=== PATIENT | female | born 1980 | race Two or more races ===

== ENCOUNTER → 2020-10-13 | Outpatient (CLI) | payer OTHER ==
[~2020-10-13] MED LIST: GADOTERATE 7.5 MMOL/15ML VIAL. IVP ONE
--- NOTE | 2020-10-13 14:00 | RAD ---
EXAMINATION: Magnetic resonance imaging (MRI) of the brain and brainstem without and with contrast 10/13/2020 9:41 AM HISTORY: Elevated prolactin. TECHNIQUE: Multiplanar multi-weighted MRI of the brain and brainstem was performed without and with i ntravenous contrast using the general brain protocol. Contrast information: 15 mL Gadolinium based contrast COMPARISON: None available. FINDINGS: The scalp and calvarium are normal. The superior sagittal sinus demonstrates normal venous flow. The corpus callosum is normal in shape and signal intensity. The posterior fossa is unremarkable. There is a hypoenhancing mass within the left sella measuring 8 x 7 x 9 mm (AP by transverse by craniocaud al). There is no involvement of the cavernous sinuses. No significant suprasellar extension. No erosi on of the clivus or extension to the sphenoid sinus. The infundibulum is deviated to the right. The b rainstem and craniocervical junction are unremarkable. Diffusion weighted images reveal no hyperintensities to suggest acute cerebral infarction. The suscep tibility weighted sequences reveal no evidence of acute or chronic hemorrhage. The ventricles are nor mal in size and position without evidence of hydrocephalus. There are no areas of abnormal contrast enhancement. The paranasal sinuses are normal. The visualized portions of the mastoids are unremarkable. The orbi ts appear normal. Normal flow voids are demonstrated in the carotid arteries and basilar artery. IMPRESSION: Left sellar based hypoenhancing mass measures 8 x 7 x 9 mm suspicious for pituitary microadenoma. The re is deviation of the infundibulum to the right. No cavernous sinus involvement or suprasellar exten tru. Electronically signed by: Ericka Rivera MD (10/13/2020 1:57 PM) [id number]
== END ==
LOC: MRI 09:13
PROVIDERS: ATTEND Nurse Practitioner Family
DX: R79.89 Other specified abnormal findings of blood chemistry (principal); N91.2 Amenorrhea, unspecified
CPT/HCPCS: 70553; A9575

== ENCOUNTER → 2020-12-09 | Outpatient (CLI) | payer OTHER ==
[2020-12-09 12:22] LABS: FREE T4 0.93 ng/dL (0.76-1.46); THYROID STIM HORMONE (TSH) 1.714 uIU/mL (0.358-3.74)
[2020-12-10 06:00] LABS: FSH 7.9 mIU/mL (.); LUTEINIZING HORMONE 8.5 mIU/mL (.); PROLACTIN 127.9 ng/mL (4.8-23.3)
== END ==
LOC: LAB 11:21
PROVIDERS: ATTEND Nurse Practitioner
DX: E22.1 Hyperprolactinemia (principal)
CPT/HCPCS: 36415; 82024; 83001; 83002; 83003; 84146; 84439; 84443